=== PATIENT | male | born 1945 | race African-American/Black ===

== ENCOUNTER 2017-03-01 20:00 | Inpatient (IN) | payer MEDICARE, OTHER ==
[~2017-03-01] VITALS: Ht 182.9 cm; Wt 83.5 kg
[2017-03-01 20:10] VITALS: BP 110/82
--- NOTE | 2017-03-01 20:14 | Emergency Room Report ---
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 has followup upcoming for RT vs surgery for encroaching mass. Had trach placed ?2 weeks ago per EMS, relayed by SNF, but its not obvious from paperwork when trach was placed Per review of paperwork, was seen by specialist who noted bleeding into the trach but NOT around/outside of trach - no additional intervention undertaken by that specialist. Also was on blood thinners for DVT/PE but per EMS STOPPED recently History of NSTEMI as well. Had ECHO recently with EG 70%, Allergies: Coded Allergies: No Known Allergies (Unverified , 03/01/17) Patient History Past Medical History: other - See HPI Past Surgical History: other - trach Pertinent Family History: unable to obtain Social History: Denies: smoking, alcohol use, drug use Immunizations: UTD Reviewed Nursing Documentation: PMH: Agreed, PSxH: Agreed Review of Systems All Other Systems: negative except mentioned in HPI Physical Exam Vital Signs Date Time Temp Pulse Resp B/P (MAP) Pulse Ox O2 Delivery O2 Flow Rate FiO2 03/01/17 19:53 98.8 115 16 110/82 98 Room Air Sp02 EP Interpretation: reviewed, normal General Appearance: normal inspection, well appearing, no apparent distress, alert, GCS 15, non-toxic, other - Blood in oropharyx, within trach tubing Head: normocephalic, atraumatic Eyes: bilateral eye PERRL, bilateral eye EOMI ENT: normal ENT inspection, hearing grossly normal, normal voice Neck: normal inspection, full range of motion, supple, no bony tend, other - Trach in place, blood in tubing. No blood seen around trach., tracheotomy Respiratory: normal inspection, lungs clear, normal breath sounds, no respiratory distress, no retraction, no accessory muscle use, no wheezing Cardiovascular #1: normal peripheral pulses, regular rate, rhythm, no edema Gastrointestinal: normal inspection, normal bowel sounds, non tender, soft, no guarding, no hernia Genitourinary: no CVA tenderness Musculoskeletal: normal inspection, back normal, normal range of motion, Rosangela' s Sign negative Neurologic: normal inspection, alert, oriented x3, responsive, junk removal specialist III-XII nml as tested, motor strength/tone normal, speech normal Psychiatric: normal inspection, judgement/insight normal, mood/affect normal Skin: normal inspection, normal color, no rash Medical Decision Making Diagnostic Impression: Primary Impression: Hemoptysis Additional Impressions: Tracheostomy complication Qualified Codes: J95.00 - Unspecified tracheostomy complication Tracheostomy dependence Sepsis Qualified Codes: A41.9 - Sepsis, unspecified organism ER Course VS improved with Abx, supportive care Trach was suctioned by RT - noted aggravation of bleed with deep suction. NO bleeding noted around trach. Unlikely stoma bleed. Also had similar episode at outside hospital. Elevated leuks: No obvious PNA on CXR. UA: negative Given initial tachycardia and leuks 17k, concern for sepsis Blood Cx pending Empiric Abx given 1L NS given H&H stable. INR normal. No additional hemoptysis episodes here. - likely source is the laryngeal mass itself. [facility] Preferred hospitalist per insurance Dr Rust. Dr Rust was called, said Dr Carrera covering his admissions. I endorsed to Dr Carrera, he confirmed he is covering Dr Rust. Tele admit at 929pm EKG Diagnostic Results Rate: tachycardiac, other - 1st degree AV block Rhythm: NSR, other - RBBB ST Segments: no acute changes ASA given to the pt in ED: No Rhythm Strip Diag. Results EP Interpretation: yes Rate: 105 Rhythm: NSR, no PVC's, no ectopy Last Vital Signs Date Time Temp Pulse Resp B/P (MAP) Pulse Ox O2 Delivery O2 Flow Rate FiO2 03/01/17 19:53 98.8 115 16 110/82 98 Room Air Status: improved Disposition: ADMITTED INPATIENT Condition: Critical TIFFANY MERCEDES M.D. Mar 01, 2017 20:14
[2017-03-01 20:27] LABS: BASOPHILS % (AUTO) 0.7 % (0.0-2.0); EOSINOPHILS % (AUTO) 0.5 % (0.0-3.0); MEAN CORPUSCULAR HEMOGLOBIN 28.9 PG (27.0-31.0); MEAN CORPUSCULAR VOLUME 96 FL (80-99); MEAN PLATELET VOLUME 6.7 FL (6.5-10.1); MONOCYTES % (AUTO) 7.7 % (1.0-10.0); NEUTROPHILS % (AUTO) 81.1 % (45.0-75.0); PLATELET COUNT 180 K/UL (150-450); RED BLOOD COUNT 3.76 M/UL (4.70-6.10); RED CELL DISTRIBUTION WIDTH 13.5 % (11.6-14.8); WHITE BLOOD COUNT 17.7 K/UL (4.8-10.8)
[2017-03-01] MEDS ORDERED: TAMSULOSIN HCL0.4 MG ORAL (20:31)
[2017-03-01] MEDS ORDERED: LEVAQUIN500 MG ORAL (20:31)
[2017-03-01] MEDS ORDERED: COLACE100 MG ORAL (20:31)
[2017-03-01] MEDS ORDERED: PEPCID20 MG ORAL (20:31)
[2017-03-01] MEDS ORDERED: LISINOPRIL5 MG ORAL (20:31)
[2017-03-01] MEDS ORDERED: ASPIRIN81 MG ORAL (20:31)
[2017-03-01] MEDS ORDERED: NEURONTIN100 MG ORAL (20:31)
[2017-03-01] MEDS ORDERED: DETROL2 MG ORAL (20:31)
[2017-03-01] MEDS ORDERED: FLONASE ALLERG9.9 ML NS (20:31)
[2017-03-01] MEDS ORDERED: CARDIZEM CD120 MG ORAL (20:31)
[2017-03-01] MEDS ORDERED: ACETAMINOPHEN-1 EAC1 ORAL (20:34)
[2017-03-01] MEDS ORDERED: COLACE100 MG GT (20:34)
[2017-03-01] MEDS ORDERED: NEXIUM20 MG ORAL (20:34)
[2017-03-01] MEDS ORDERED: ZESTRIL2.5 MG ORAL (20:34)
[2017-03-01 20:38] LABS: INR 1.1 (0.9-1.1); PROTHROMBIN TIME 11.4 SEC (9.30-11.50)
[2017-03-01 20:46] LABS: ALANINE AMINOTRANSFERASE 45 U/L (12-78); ALBUMIN/GLOBULIN RATIO 0.5 (1.0-2.7); ANION GAP 8 mmol/L (5-15); ASPARTATE AMINO TRANSFERASE 31 U/L (15-37); CALCIUM 8.8 MG/DL (8.5-10.1); CARBON DIOXIDE 30 MMOL/L (21-32); CHLORIDE 101 MMOL/L (98-107); CREATININE 0.8 MG/DL (0.55-1.30); LIPASE 159 U/L (73-393); POTASSIUM 3.8 MMOL/L (3.5-5.1); SODIUM 139 MMOL/L (136-145); TOTAL PROTEIN 7.1 G/DL (6.4-8.2)
[2017-03-01] MEDS ORDERED: Cefepime HCl 2 GM in D5W 110 ML IVPB ONE (21:00)
[2017-03-01] MEDS ORDERED: Cefepime 2gm ONE (21:09)
[2017-03-01 21:15] LABS: APPEARANCE,URINE CLEAR; KETONES,URINE NEGATIVE (NEGATIVE); LEUKOCYTE ESTERASE ,URINE NEGATIVE (NEGATIVE); NITRITE,URINE NEGATIVE (NEGATIVE); PH,URINE 7 (4.5-8.0); PROTEIN,URINE NEGATIVE (NEGATIVE); UROBILINOGEN,URINE NORMAL MG/DL (0.0-1.0)
[2017-03-01] MEDS ORDERED: SENNA8.6 M2 GT (21:23)
[2017-03-01] MEDS ORDERED: BISACODYL5 MG RECTAL (21:23)
[2017-03-01] MEDS ORDERED: FLEET ENEMA133 ML RECTAL (21:23)
[2017-03-01] MEDS ORDERED: MILK OF MA400 MG/51 GT (21:23)
[2017-03-01 21:26] LABS: WBC,URINE 0-2 /HPF (0 - 0)
[2017-03-01 21:59] VITALS: BP 112/83
[2017-03-01] MEDS ORDERED: Zosyn 3.375gm/50ml Premix 50 ML IVPB SCH (22:00)
[2017-03-01] MEDS: Vancomycin 1.5 GM/D5W 250ML IVPB SCH (23:00)
[2017-03-01] MEDS: Albuterol/Ipratropium 3ml neb HHN SCH (23:00)
[2017-03-01] MEDS ORDERED: Zosyn 3.375gm inj ONE (23:23)
[2017-03-02] VITALS: BP 114/70
[2017-03-02] MEDS: Piperacillin/Tazobactam 3.375 GM in D5W 110 ML IVPB SCH ×2 (01:30→05:24)
[2017-03-02] MEDS: Albuterol/Ipratropium 3ml neb HHN SCH ×6 (02:53→23:13)
[2017-03-02] MEDS: Tylenol #3 tab (300mg/30mg) ORAL PRN ×3 (02:58→20:25)
[2017-03-02 04:00] VITALS: BP 110/67
[2017-03-02] MEDS ORDERED: Zosyn 3.375gm inj ONE (04:58)
[2017-03-02 08:00] VITALS: BP 105/63
[2017-03-02] MEDS ORDERED: dilTIAZem HCl CD 120mg cap ORAL SCH (09:00)
[2017-03-02] MEDS ORDERED: Bisacodyl EC 5mg tab ORAL SCH (09:00)
[2017-03-02 09:06] LABS: BASOPHILS % (AUTO) 0.6 % (0.0-2.0); EOSINOPHILS % (AUTO) 0.9 % (0.0-3.0); LYMPHOCYTES % (AUTO) 10.1 % (20.0-45.0); MEAN CORPUSCULAR HEMOGLOBIN 31.2 PG (27.0-31.0); MEAN CORPUSCULAR HGB CONC 32.9 G/DL (32.0-36.0); MEAN CORPUSCULAR VOLUME 95 FL (80-99); MEAN PLATELET VOLUME 7.9 FL (6.5-10.1); MONOCYTES % (AUTO) 8.3 % (1.0-10.0); NEUTROPHILS % (AUTO) 80.1 % (45.0-75.0); PLATELET COUNT 184 K/UL (150-450); RED CELL DISTRIBUTION WIDTH 13.4 % (11.6-14.8); WHITE BLOOD COUNT 16.5 K/UL (4.8-10.8)
[2017-03-02 09:35] LABS: ALANINE AMINOTRANSFERASE 36 U/L (12-78); ALBUMIN/GLOBULIN RATIO 0.6 (1.0-2.7); ANION GAP 9 mmol/L (5-15); ASPARTATE AMINO TRANSFERASE 29 U/L (15-37); CALCIUM 8.4 MG/DL (8.5-10.1); CARBON DIOXIDE 27 MMOL/L (21-32); CHLORIDE 103 MMOL/L (98-107); CREATININE 0.8 MG/DL (0.55-1.30); POTASSIUM 3.9 MMOL/L (3.5-5.1); SODIUM 139 MMOL/L (136-145); TOTAL PROTEIN 6.2 G/DL (6.4-8.2)
[2017-03-02] MEDS: Milk of Magnesia 30ml Ud GT SCH (10:03)
[2017-03-02] MEDS: Docusate 100mg cap ORAL SCH ×2 (10:04→17:50)
[2017-03-02] MEDS: Pantoprazole Inj IVP SCH (10:05)
--- NOTE | 2017-03-02 10:23 | Diagnostic Imaging Report ---
Indication: COUGH Technique: One view of the chest Comparison: none Findings: Lungs and pleural spaces are clear. Heart size is normal. Patient's chin obscures the upper mediastinum. There is a tracheostomy Impression: No acute process
[2017-03-02] MEDS: Tolterodine 2mg tab ORAL SCH ×2 (10:38→17:50)
[2017-03-02 12:00] VITALS: BP 110/60
[2017-03-02] MEDS: Vancomycin 1.5 GM/D5W 250ML IVPB SCH ×2 (13:17)
[2017-03-02] MEDS: Zosyn 3.375gm/50ml Premix 50 ML IVPB SCH ×2 (15:26→22:00)
[2017-03-02 16:00] VITALS: BP 115/69
[2017-03-02] MEDS ORDERED: NS 275ml ONE (16:30)
[2017-03-02] MEDS ORDERED: Tubing IV Secondary IV ONE (16:30)
--- NOTE | 2017-03-02 18:30 | History and Physical Report ---
DATE OF ADMISSION: 03/01/2017 CHIEF COMPLAINT: Hemoptysis. HISTORY OF PRESENT ILLNESS: The patient is a 71-year-old male. He has a history of recent trach placement in January for a mass in the neck. According to the patient, he was well until January. He apparently saw the ENT at that time, was diagnosed with some type of a mass in the airway or the oropharynx. It was recommended at that time he have a trach placement. He underwent trach placement in January, had been doing well. He recently developed hemoptysis 2 weeks ago, was at an outside hospital, had extensive workup there, was unremarkable. His course there was complicated by tachycardia. He was also diagnosed with blood clots in the lung. According to the family members, he is briefly on anticoagulation and subcutaneous heparin, but this has apparently been discontinued. He was discharged to a [facility] facility and developed worsening hemoptysis there and was transferred here to the emergency room. He is now admitted for further evaluation and care. According to the patient, suction has been fairly aggressive at the fdc facility. He is on aspirin. He is otherwise without complaints. In the ER, he was noted to have a high white count. There was a concern about possible underlying infection. He is therefore admitted. PAST MEDICAL HISTORY: As above. PAST SURGICAL HISTORY: As above. CURRENT MEDICATIONS: Reconciled and reviewed. ALLERGIES: None. FAMILY HISTORY: None. SOCIAL HISTORY: The patient is a prior smoker. No alcohol. No drugs. REVIEW OF SYSTEMS: Negative except for hemoptysis. PHYSICAL EXAMINATION: VITAL SIGNS: Temperature 97.5, pulse 95, respirations 18, and blood pressure 110/67. GENERAL: The patient is a well-developed male, in no apparent distress. He is awake, alert, and oriented. HEENT: His pupils are equal, round, and reactive to light. Sclerae anicteric. Oropharynx is clear. NECK: Supple. Trachea is midline. There is no discharge. HEART: Regular rate and rhythm. LUNGS: Clear. ABDOMEN: Soft, nontender, and nondistended. EXTREMITIES: Without clubbing, cyanosis, or edema. LABORATORY AND DIAGNOSTIC DATA: Labs, coags are normal. White count 17,000, hemoglobin 11, hematocrit 36, and platelets of 180. Sodium is 139, potassium 3.8, and glucose 140. Troponin is 0.025. UA was negative. 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 PLAN: Humidified air, gentle suctioning. Continue outpatient medication regimen. We will discontinue the patient's aspirin for the time being. We will check a venous duplex of the legs. The patient will receive empiric antibiotics until infection is ruled out. Miah Carrera M.D. DR: DUNIA JOB#: [id number] CC:
[2017-03-02 20:00] VITALS: BP 110/84
[2017-03-02] MEDS: Tamsulosin 0.4mg cap ORAL SCH (20:25)
[2017-03-02] MEDS ORDERED: Lactulose 20gm/30ml UDC ORAL PRN (21:15)
[2017-03-02] MEDS ORDERED: Fleet's Enema 133ml RECTAL ONE (21:30)
[2017-03-02] MEDS ORDERED: Fleet's Enema 133ml RECTAL PRN (21:45)
[2017-03-03] VITALS: BP 142/87
[2017-03-03] MEDS: Albuterol/Ipratropium 3ml neb HHN SCH ×6 (03:12→23:53)
[2017-03-03 04:00] VITALS: BP 107/70
[2017-03-03] MEDS: Zosyn 3.375gm/50ml Premix 50 ML IVPB SCH ×3 (05:57→21:17)
[2017-03-03 08:00] VITALS: BP 95/69
[2017-03-03] MEDS ORDERED: Docusate 250mg cap ORAL SCH (09:00)
--- NOTE | 2017-03-03 09:16 | General Progress Note ---
Assessment/Plan Problem List: (1) Hemoptysis ICD Codes: R04.2 - Hemoptysis SNOMED: 96051499 (2) Sepsis ICD Codes: A41.9 - Sepsis, unspecified organism SNOMED: 46517688 Qualifiers: Qualified Codes: A41.9 - Sepsis, unspecified organism (3) Tracheostomy complication ICD Codes: J95.00 - Unspecified tracheostomy complication SNOMED: 72958023 Qualifiers: Qualified Codes: J95.00 - Unspecified tracheostomy complication Status: stable, progressing Assessment/Plan gentle trach care off aspirin due to hemoptysis check duplex- recent hx of pe/dvt. not on anticoag. ?filter check sputum cs bowel regime Subjective ROS Limited/Unobtainable: No Constitutional: Reports: malaise, weakness HEENT: Reports: no symptoms Cardiovascular: Reports: no symptoms Respiratory: Reports: cough Gastrointestinal/Abdominal: Reports: no symptoms Genitourinary: Reports: no symptoms Neurologic/Psychiatric: Reports: no symptoms Endocrine: Reports: no symptoms Hematologic/Lymphatic: Reports: anemia Allergies: Coded Allergies: No Known Allergies (Unverified , 03/01/17) All Systems: reviewed and negative except above Subjective decreased hemoptysis. constipation better. wants to ivy. on iv abx. cultures reviewed Objective Last 24 Hour Vital Signs Date Time Temp Pulse Resp B/P (MAP) Pulse Ox O2 Delivery O2 Flow Rate FiO2 03/03/17 08:00 97.9 95 20 95/69 98 Mechanical Ventilator 03/03/17 07:02 81 18 98 T-piece 10.0 35 03/03/17 06:53 35 03/03/17 06:53 T-piece 10.0 35 03/03/17 06:53 82 18 97 T-piece 10.0 35 03/03/17 06:52 97 T-piece 10.0 35 03/03/17 04:00 98.2 86 20 107/70 99 T-piece 4.0 35 03/03/17 04:00 4.0 35 03/03/17 04:00 84 03/03/17 03:21 86 18 99 T-piece 10.0 35 03/03/17 03:12 84 18 98 T-piece 10.0 35 03/03/17 03:12 35 03/03/17 01:35 T-piece 10.0 35 03/03/17 01:35 98 T-piece 10.0 35 03/03/17 00:00 4.0 35 03/03/17 00:00 88 03/03/17 00:00 97.0 116 20 142/87 100 Room Air 10.0 35 03/02/17 23:26 92 20 100 T-piece 10.0 35 03/02/17 23:13 35 03/02/17 23:13 92 18 98 T-piece 10.0 35 03/02/17 21:24 97.5 03/02/17 20:00 97.5 86 18 110/84 99 T-piece 10.0 35 03/02/17 20:00 4.0 35 03/02/17 19:44 85 18 99 T-piece 10.0 35 03/02/17 19:35 86 03/02/17 19:34 83 18 96 T-piece 10.0 35 03/02/17 19:34 35 03/02/17 19:34 83 18 T-piece 10.0 35 03/02/17 19:33 96 T-piece 10.0 35 03/02/17 19:33 T-piece 10.0 35 03/02/17 16:10 81 20 99 T-piece 10.0 35 03/02/17 16:10 86 18 100 T-piece 10.0 35 03/02/17 16:00 83 03/02/17 16:00 4.0 35 03/02/17 16:00 97.5 83 21 115/69 99 Mechanical Ventilator 03/02/17 15:54 82 18 99 T-piece 10.0 35 03/02/17 15:54 35 03/02/17 13:20 T-piece 10.0 35 03/02/17 13:20 100 T-piece 10.0 35 03/02/17 12:00 84 03/02/17 12:00 4.0 35 03/02/17 12:00 98.0 85 20 110/60 98 Mechanical Ventilator 03/02/17 11:12 85 18 100 T-piece 10.0 35 03/02/17 11:01 91 18 100 T-piece 10.0 35 03/02/17 11:01 35 03/02/17 10:05 86 105/63 Height (Feet): 6 Height (Inches): 1.00 Weight (Pounds): 184 General Appearance: WD/WN, alert Neck: supple Cardiovascular: regular rhythm Respiratory/Chest: chest wall non-tender, lungs clear, normal breath sounds, no respiratory distress Abdomen: normal bowel sounds, non tender, soft, no organomegaly Edema: trace edema Neurologic: airport operations coordinator II-XII grossly normal Lymphatic: normal anterior cervical (L), normal anterior cervical (R), normal posterior cervical (L), normal posterior cervical (R), normal submandibular (L) , normal submandibular (R), normal supraclavicular (L), normal supraclavicular ( R), normal axillary (L), normal axillary (R), normal inguinal (L), normal inguinal (R), normal other LUCIA ROBLES Mar 03, 2017 09:16
[2017-03-03] MEDS: dilTIAZem HCl 30mg tab ORAL SCH ×3 (09:30→21:55)
[2017-03-03] MEDS: Docusate 100mg/10ml Liq GT SCH ×2 (10:13→17:21)
[2017-03-03] MEDS: Tolterodine 2mg tab ORAL SCH ×2 (10:14→17:24)
[2017-03-03] MEDS: Milk of Magnesia 30ml Ud GT SCH (10:14)
[2017-03-03] MEDS: Pantoprazole Inj IVP SCH (10:16)
[2017-03-03] MEDS: Vancomycin 1.5 GM/D5W 250ML IVPB SCH (10:17)
[2017-03-03 12:00] VITALS: BP 117/71
[2017-03-03] MEDS: Gabapentin 300 MG/6 ML Soln GT SCH (12:18)
[2017-03-03] MEDS: Vancomycin 1250mg/D5W 250ml IVPB SCH ×2 (12:19→23:36)
[2017-03-03] MEDS: Acetaminophen 650mg/20.3ml GT PRN ×2 (12:25→17:23)
[2017-03-03] MEDS ORDERED: Sterile Water Irrig 1000ml IRRIG ONE (15:35)
[2017-03-03 16:00] VITALS: BP 118/73
[2017-03-03 20:00] VITALS: BP 90/59
[2017-03-03] MEDS: Tamsulosin 0.4mg cap ORAL SCH (21:15)
[2017-03-04] VITALS: BP 102/69
[2017-03-04 04:00] VITALS: BP 117/63
[2017-03-04] MEDS: Albuterol/Ipratropium 3ml neb HHN SCH ×5 (04:19→21:32)
[2017-03-04] MEDS: Zosyn 3.375gm/50ml Premix 50 ML IVPB SCH ×3 (05:31→21:24)
[2017-03-04] MEDS: dilTIAZem HCl 30mg tab ORAL SCH ×4 (05:32→21:29)
[2017-03-04] MEDS: Acetaminophen 650mg/20.3ml GT PRN (05:49)
[2017-03-04 08:00] VITALS: BP 106/67
[2017-03-04] MEDS: Milk of Magnesia 30ml Ud GT SCH (08:58)
[2017-03-04] MEDS: Tolterodine 2mg tab ORAL SCH ×2 (08:58→17:26)
[2017-03-04] MEDS: Docusate 100mg/10ml Liq GT SCH ×2 (08:59→17:54)
[2017-03-04] MEDS: Gabapentin 300 MG/6 ML Soln GT SCH (08:59)
[2017-03-04] MEDS: Pantoprazole Inj IVP SCH (09:00)
--- NOTE | 2017-03-04 11:20 | Diagnostic Imaging Report ---
APPROVED REPORT CPT Code: 36879 Present Symptoms Lower Extremity Pain: Bilateral BILATERAL: Imaging reveals a patent deep venous system bilaterally. There is no evidence of thrombus within the femoral, popliteal or tibial segments. The greater saphenous veins are also within normal limits. Doppler indicates normal spontaneous flow within these segments.
[2017-03-04 12:00] VITALS: BP 104/62
[2017-03-04] MEDS: Vancomycin 1250mg/D5W 250ml IVPB SCH ×2 (12:25→23:48)
[2017-03-04] MEDS ORDERED: NS 275ml ONE (15:55)
[2017-03-04 16:00] VITALS: BP 104/67
[2017-03-04 20:00] VITALS: BP 125/78
[2017-03-04] MEDS: Tamsulosin 0.4mg cap ORAL SCH (21:18)
--- NOTE | 2017-03-04 23:45 | Consultation ---
DATE OF CONSULTATION: 03/04/2017 PULMONARY CONSULTATION/HISTORY AND PHYSICAL CONSULTING PHYSICIAN: Emanuel Rust M.D. HISTORY OF PRESENT ILLNESS: This is a 71-year-old male with a history of chronic tracheostomy, which was placed approximately a month and a half ago after he had been diagnosed to have head and neck carcinoma. He developed hemoptysis several weeks ago and was seen at an outside hospital, where he had an extensive workup that was reportedly negative. He again had hemoptysis yesterday at the facility and was transferred to this hospital for subsequent management and care. The patient states that he has been getting aggressive suctioning at the nursing facility. Apparently, he has been on aspirin and previously was on subcutaneous heparin as well. In the emergency room, in addition to having hemoptysis, he was also noted to have a white count of 17,000. Today's white count is 16.5, hemoglobin dropped from 10.9 to 10.0. Coags are negative. X-ray of the chest is negative. PAST MEDICAL HISTORY: Notable for head and neck cancer only. PAST SURGICAL HISTORY: Tracheostomy. MEDICATIONS: At this time include Neurontin, Cardizem, Colace, and Flomax. He is also on empiric antibiotics. ALLERGIES: None. REVIEW OF SYSTEMS: Denies any headaches, hematemesis, melena, or hematochezia. PHYSICAL EXAMINATION: GENERAL: A 71-year-old male. HEENT: Unremarkable. Tracheostomy is noted. CHEST: Clear breath sounds. ABDOMEN: Soft. EXTREMITIES: There is no edema. LABORATORY DATA: Labs as discussed above. IMPRESSION: 1. Hemoptysis. 2. Head and neck carcinoma. DISCUSSION: Agree with empiric antibiotics. We will consider imaging studies. Discontinue aspirin. Suction gently with humidification. We will follow. Emanuel Rust M.D. DR: JOSE A/marilyn JOB#: [id number] CC:
[2017-03-04] MEDS: Tylenol #3 tab (300mg/30mg) ORAL PRN (23:46)
[2017-03-05] VITALS: BP 111/64
[2017-03-05] MEDS: Albuterol/Ipratropium 3ml neb HHN SCH ×6 (00:14→19:09)
[2017-03-05 04:00] VITALS: BP 117/68
[2017-03-05] MEDS: Zosyn 3.375gm/50ml Premix 50 ML IVPB SCH ×2 (05:37→15:05)
[2017-03-05] MEDS: dilTIAZem HCl 30mg tab ORAL SCH ×2 (05:38→15:04)
[2017-03-05] MEDS: Acetaminophen 650mg/20.3ml GT PRN (06:00)
[2017-03-05 06:41] LABS: BASOPHILS % (AUTO) 0.9 % (0.0-2.0); EOSINOPHILS % (AUTO) 1.4 % (0.0-3.0); MEAN CORPUSCULAR HEMOGLOBIN 29.8 PG (27.0-31.0); MEAN CORPUSCULAR HGB CONC 31.6 G/DL (32.0-36.0); MEAN CORPUSCULAR VOLUME 94 FL (80-99); MEAN PLATELET VOLUME 7.4 FL (6.5-10.1); MONOCYTES % (AUTO) 10.5 % (1.0-10.0); NEUTROPHILS % (AUTO) 72.2 % (45.0-75.0); PLATELET COUNT 181 K/UL (150-450); RED BLOOD COUNT 3.08 M/UL (4.70-6.10); RED CELL DISTRIBUTION WIDTH 13.8 % (11.6-14.8); WHITE BLOOD COUNT 11.5 K/UL (4.8-10.8)
[2017-03-05 07:10] LABS: ANION GAP 6 mmol/L (5-15); CALCIUM 8.2 MG/DL (8.5-10.1); CARBON DIOXIDE 28 MMOL/L (21-32); CHLORIDE 107 MMOL/L (98-107); CREATININE 0.8 MG/DL (0.55-1.30); POTASSIUM 3.8 MMOL/L (3.5-5.1); SODIUM 141 MMOL/L (136-145)
[2017-03-05 08:00] VITALS: BP 111/63
[2017-03-05] MEDS: Docusate 100mg/10ml Liq GT SCH ×2 (08:39→18:00)
[2017-03-05] MEDS: Milk of Magnesia 30ml Ud GT SCH (08:39)
[2017-03-05] MEDS: Tolterodine 2mg tab ORAL SCH ×2 (08:40→18:40)
[2017-03-05] MEDS: Pantoprazole Inj IVP SCH (08:40)
[2017-03-05] MEDS: Gabapentin 300 MG/6 ML Soln GT SCH (09:04)
--- NOTE | 2017-03-05 09:13 | Pulmonology Progress Note ---
Assessment/Plan Assessment/Plan IMPRESSION: 1. Hemoptysis. 2. Head and neck carcinoma. DISCUSSION: Records from [facility] reviewed Minimal bleeding last 24 hours from trach Will dc back to SNF Discussed with family Patient is scheduled for followup with surgeon; likely ENT Will leave delaney in Subjective Interval Events: No further hemoptysis Constitutional: Reports: no symptoms HEENT: Repors: no symptoms Respiratory: Reports: no symptoms Cardiovascular: Reports: no symptoms Gastrointestinal/Abdominal: Reports: no symptoms Genitourinary: Reports: no symptoms Neurologic: Reports: no symptoms Allergies: Coded Allergies: No Known Allergies (Unverified , 03/01/17) Objective Last 24 Hour Vital Signs Date Time Temp Pulse Resp B/P (MAP) Pulse Ox O2 Delivery O2 Flow Rate FiO2 03/05/17 08:00 97.9 79 19 111/63 99 T-piece 03/05/17 08:00 79 03/05/17 08:00 8.0 35 03/05/17 07:30 T-piece 6.0 28 03/05/17 07:30 100 T-piece 6.0 28 03/05/17 07:30 T-piece 6.0 28 03/05/17 07:30 84 16 100 T-piece 6.0 28 03/05/17 07:03 98.8 03/05/17 05:38 82 117/68 03/05/17 04:00 98.8 82 20 117/68 97 T-piece 03/05/17 04:00 82 03/05/17 04:00 6.0 28 03/05/17 03:45 82 20 98 T-piece 6.0 28 03/05/17 03:45 28 03/05/17 03:30 81 20 97 T-piece 6.0 28 03/05/17 01:11 T-piece 6.0 28 03/05/17 01:11 98 T-piece 6.0 28 03/05/17 00:00 84 03/05/17 00:00 6.0 28 03/05/17 00:00 98.4 83 20 111/64 96 Room Air 03/04/17 23:45 84 20 100 T-piece 6.0 28 03/04/17 23:30 28 03/04/17 23:30 80 20 98 T-piece 6.0 28 03/04/17 21:29 81 125/78 03/04/17 20:00 81 03/04/17 20:00 8.0 35 03/04/17 20:00 98.4 81 20 125/78 100 T-piece 03/04/17 19:45 86 20 100 T-piece 6.0 28 03/04/17 19:30 82 20 98 T-piece 6.0 28 03/04/17 19:30 28 03/04/17 19:30 98 T-piece 6.0 28 03/04/17 19:30 T-piece 6.0 28 03/04/17 16:00 81 03/04/17 16:00 8.0 35 03/04/17 16:00 97.0 81 16 104/67 100 Trach Collar 35 03/04/17 15:37 85 16 100 T-piece 8.0 35 03/04/17 15:25 35 03/04/17 15:25 86 18 98 T-piece 8.0 35 03/04/17 13:05 98 T-piece 8.0 35 03/04/17 13:05 T-piece 8.0 35 03/04/17 12:00 97.5 86 16 104/62 100 Trach Collar 35 03/04/17 12:00 8.0 35 03/04/17 12:00 81 03/04/17 11:32 83 18 100 T-piece 8.0 35 03/04/17 11:20 82 18 98 T-piece 8.0 35 03/04/17 11:20 35 General Appearance: no acute distress HEENT: normocephalic, status post trach Respiratory/Chest: chest wall non-tender, lungs clear Cardiovascular: normal peripheral pulses, normal rate Abdomen: normal bowel sounds, soft, non tender Microbiology Date/Time Source Procedure Growth Status 03/03/17 11:00 Sputum Expectorated Gram Stain - Final Complete 03/03/17 11:00 Sputum Expectorated Sputum Culture - Final NORMAL UPPER RESPIRATORY TIFF PRESENT Complete Laboratory Tests 03/05/17 06:00: White Blood Count 11.5H, Red Blood Count 3.08L, Hemoglobin 9.2L, Hematocrit 29.0L, Mean Corpuscular Volume 94, Mean Corpuscular Hemoglobin 29.8, Mean Corpuscular Hemoglobin Concent 31.6L, Red Cell Distribution Width 13.8, Platelet Count 181, Mean Platelet Volume 7.4, Neutrophils (%) (Auto) 72.2, Lymphocytes (%) (Auto) 15.0L, Monocytes (%) (Auto) 10.5H, Eosinophils (%) (Auto ) 1.4, Basophils (%) (Auto) 0.9, Sodium Level 141, Potassium Level 3.8, Chloride Level 107, Carbon Dioxide Level 28, Anion Gap 6, Blood Urea Nitrogen 7 , Creatinine 0.8, Estimat Glomerular Filtration Rate , Glucose Level 126H, Calcium Level 8.2L Current Medications Medications (Trade) Dose Ordered Sig/Nima Route PRN Reason Start Time Stop Time Status Last Admin Dose Admin Acetaminophen (Tylenol) 650 mg Q4H PRN GT Mild Pain/Temp > 100.5 03/01/17 21:45 03/31/17 21:44 03/05/17 06:00 Acetaminophen/ Codeine Phosphate (Tylenol #3) 1 tab Q4H PRN ORAL For Pain 03/01/17 21:45 03/08/17 21:44 03/04/17 23:46 Albuterol/ Ipratropium (Albuterol/ Ipratropium) 3 ml Q4HRT HHN 03/01/17 23:00 03/06/17 22:59 03/05/17 04:37 Bisacodyl (Dulcolax) 10 mg DAILYPRN PRN RECTAL Constipation 03/02/17 21:15 04/01/17 21:14 03/02/17 21:48 Diltiazem HCl (Cardizem) 30 mg EVERY 8 HOURS ORAL 03/03/17 09:30 04/02/17 09:29 03/05/17 05:38 Docusate Sodium (Colace) 250 mg TWICE A DAY GT 03/03/17 09:00 04/02/17 08:59 03/04/17 08:59 Gabapentin (Neurontin) 300 mg DAILY GT 03/03/17 10:30 04/02/17 10:29 03/05/17 09:04 Lactulose (Cephulac) 30 gm TIDPRN PRN ORAL Constipation 03/02/17 21:15 04/01/17 21:14 Magnesium Hydroxide (Mom) 30 ml DAILY GT 03/02/17 09:00 04/01/17 08:59 03/04/17 08:58 Ondansetron HCl (Zofran) 4 mg Q6H PRN IVP Nausea & Vomiting 03/01/17 21:45 03/31/17 21:44 Pantoprazole (Protonix) 40 mg DAILY IVP 03/02/17 09:00 04/01/17 08:59 03/05/17 08:40 Piperacillin/ Tazobactam/ Dextrose 50 ml @ 12.5 mls/hr Q8HR IVPB 03/02/17 14:00 03/09/17 13:59 03/05/17 05:37 Sodium Chloride 1,000 ml @ 75 mls/hr [id number] IV 03/01/17 21:45 03/31/17 21:44 03/05/17 02:57 Sodium Phosphate (Fleet's Sodium Phosl Enema) 133 ml DAILYPRN PRN RECTAL Constipation 03/02/17 21:45 04/01/17 21:44 Tamsulosin HCl (Flomax) 0.4 mg BEDTIME ORAL 03/02/17 21:00 04/01/17 20:59 03/04/17 21:18 Temazepam (Restoril) 15 mg HSPRN PRN GT Insomnia 03/01/17 21:45 03/08/17 21:44 Tolterodine Tartrate (Detrol) 2 mg TWICE A DAY ORAL 03/02/17 09:00 04/01/17 08:59 03/05/17 08:40 Vancomycin HCl (Vanco rx to dose) 1 ea DAILY PRN MISC Per rx protocol 03/01/17 21:45 03/31/17 21:44 Vancomycin HCl/ Dextrose 250 ml @ 166.667 mls/hr Q12HR@0000,1200 IVPB 03/03/17 12:00 03/08/17 11:59 03/04/17 23:48 Emanuel Rust MD Mar 05, 2017 09:13
[2017-03-05 12:00] VITALS: BP 102/66
[2017-03-05] MEDS: Vancomycin 1250mg/D5W 250ml IVPB SCH (12:20)
[2017-03-05] MEDS ORDERED: Nitroglycerin Subl 0.4mg tab SL ONE (13:44)
[2017-03-05] MEDS ORDERED: Morphine Sulfate 4mg/ml Inj IVP PRN (14:45)
[2017-03-05] MEDS ORDERED: Morphine Sulfate 4mg/ml Inj IVP ONE (15:00)
[2017-03-05 16:00] VITALS: BP 102/70
[2017-03-05] MEDS ORDERED: Sterile Water Irrig 1000ml IRRIG ONE (16:32)
[2017-03-05] MEDS ORDERED: NS 275ml ONE (16:32)
[2017-03-05] MEDS: Tylenol #3 tab (300mg/30mg) ORAL PRN (22:22)
[2017-03-05] MEDS: Tamsulosin 0.4mg cap ORAL SCH (22:22)
--- NOTE | 2017-03-06 15:16 | Cardiology Report ---
APPROVED REPORT EKG Measurement Heart [id number] CO P-82 [id number] Atrial flutter Right bundle branch block Abnormal ECG
--- NOTE | 2017-03-07 11:33 | Discharge Summary ---
Discharge Summary Hospital Course Date of Admission Mar 01, 2017 at 21:15 Date of Discharge Mar 05, 2017 at 22:15 Admitting Diagnosis hemoptysis from [facility] VERA Price is a 71 year old male who was admitted on Mar 01, 2017 at 21:15 for Hemoptysis From [facility] Hospital Course [id number] Discharge Discharge Disposition Patient was discharged to SNF/Subacute Facility(03) Discharge Diagnoses: Vijaya Ortiz NP Mar 07, 2017 11:33
--- NOTE | 2017-03-07 22:15 | Discharge Summary 2 SIG ---
DATE OF ADMISSION: 03/01/2017 DATE OF DISCHARGE: 03/05/2017 BRIEF HOSPITAL COURSE: The patient is a 71-year-old male, who had history of trach placement in January, secondary to a mass in the neck/mass in the airway or oropharynx. He underwent trach placement in January 2017 and had been doing fairly well. He recently developed hemoptysis two weeks ago and was admitted to an outside hospital where he had extensive workup, which was unremarkable. He was diagnosed with blood clots in the lung and was briefly on anticoagulation and subcutaneous heparin; however, had been apparently discontinued. He was discharged to a [facility] facility where he developed worsening hemoptysis and was transferred here to [facility] for further care. On evaluation at ED, blood work showed leukocytosis. The trach was suctioned by RT and noted aggravation of bleeding with deep suction. There was no bleeding noted peripherally around the trach. Due to elevated leukocytosis, there was concern for sepsis. There was no obvious pneumonia on chest x-ray and urinalysis was fairly benign looking. He was started on empiric antibiotic and the patient was admitted to telemetry for further evaluation. He was taken off aspirin due to hemoptysis. Venous duplex of lower extremity revealed patent deep venous system bilaterally. There was no evidence of acute thrombosis within the femoral, popliteal, or tibial segments. There had been minimal bleeding coming out from the trach and the INR was 1.1. He was continued on IV antibiotics and was eventually discharged back to SNF. The patient for followup with ENT as outpatient. FINAL DIAGNOSES: 1. Hemoptysis. 2. Sepsis. 3. Tracheostomy complication. 4. Head and neck carcinoma. DISCHARGE DISPOSITION: The patient was discharged to [facility]. DISCHARGE MEDICATIONS: Refer to medication list. [facility]. FOLLOWUP: The patient to follow up with ENT as outpatient. Emanule Rust M.D. I have been assigned to dictate discharge summary on this account and I was not involved in the patient's management. Vijaya Ortiz N.P. DR: Johnny JOB#: [id number] CC: TATIANA
== END 2017-03-05 22:15 | DRG 872 ==
LOC: EDBD 20:00 → EMR 20:33 → EDBEDREQ 20:38 → 2E 21:15 → EDBEDREQ 21:39
DX: A41.9 Sepsis, unspecified organism (principal); J95.01 Hemorrhage from tracheostomy stoma; C76.0 Malignant neoplasm of head, face and neck; Z87.891 Personal history of nicotine dependence; I10 Essential (primary) hypertension; Z86.711 Personal history of pulmonary embolism; Y83.3 Surgical operation with formation of external stoma as the cause of abnormal reaction of the patient, or of later complication, without mention of misadventure at the time of the procedure
CPT/HCPCS: 36415; 71010; 80048; 80053; 80202; 81003; 82962; 83690; 84484; 85025; 85610; 85730; 86850; 86900; 86901; 87040; 87070; 87081; 87205; 93005; 93970; 94640; 94664; 94760; 99285; J7620

== ENCOUNTER 2017-03-24 10:52 | Inpatient (IN) | payer MEDICARE ==
[2017-03-24] VITALS (24 sets, daily range): BP systolic 93–157; BP diastolic 55–97
[~2017-03-24] VITALS: Ht 188 cm; Wt 85.3 kg
[~2017-03-24 10:52] MED LIST: ACETAMINOPHEN-1 EAC1 ORAL; ASPIRIN81 MG ORAL; BISACODYL5 MG RECTAL; CARDIZEM CD120 MG ORAL; COLACE100 MG GT; COLACE100 MG ORAL; DETROL2 MG ORAL; FLEET ENEMA133 ML RECTAL; FLONASE ALLERG9.9 ML NS; LEVAQUIN500 MG ORAL; LISINOPRIL5 MG ORAL; MILK OF MA400 MG/51 GT; NEURONTIN100 MG ORAL; NEXIUM20 MG ORAL; PEPCID20 MG ORAL; SENNA8.6 M2 GT; TAMSULOSIN HCL0.4 MG ORAL; ZESTRIL2.5 MG ORAL
[2017-03-24] MEDS ORDERED: ACETAMINOP160 MG/5 M GT ×3 (11:01→11:15)
[2017-03-24] MEDS ORDERED: Iron Sulfate GT (11:15)
[2017-03-24] MEDS ORDERED: MULTIVITAMINS1 EAC2 GT (11:15)
[2017-03-24] MEDS ORDERED: ZINC SULFATE220 M1 GT (11:15)
[2017-03-24] MEDS ORDERED: VITAMIN C500 M1 GT (11:15)
[2017-03-24 11:19] LABS: MEAN CORPUSCULAR HEMOGLOBIN 28.6 PG (27.0-31.0); MEAN CORPUSCULAR HGB CONC 31.7 G/DL (32.0-36.0); MEAN CORPUSCULAR VOLUME 90 FL (80-99); MEAN PLATELET VOLUME 6.5 FL (6.5-10.1); PLATELET COUNT 324 K/UL (150-450); RED CELL DISTRIBUTION WIDTH 14.5 % (11.6-14.8)
[2017-03-24 11:21] LABS: WHITE BLOOD COUNT 23.9 K/UL (4.8-10.8)
--- NOTE | 2017-03-24 11:22 | Emergency Room Report ---
History of Present Illness General Chief Complaint: General Complaint Source: Medical Record (Alda Richardson M.D.) Present Illness HPI 71-year-old male, history of malignant laryngeal cancer, with a tracheostomy, PEG tube, presenting with bleeding from mouth and nose. EMS states that that has happened in the past, the last notes from the shelter states that he is supposed to be following up with the ENT However no other history able to be obtained Patient currently unable to speak, however following commands, states that he is in pain (Alda Richardson M.D.) Allergies: Coded Allergies: No Known Allergies (Unverified , 03/01/17) Patient History Past Medical History: see triage record Past Surgical History: none Pertinent Family History: none Reviewed Nursing Documentation: PMH: Agreed, PSxH: Agreed (Alda Richardson M.D. ) Nursing Documentation-PMH Hx Hypertension: Yes - Glaucoma Hx Cancer: Yes - Larynx; Trache Hx Gastrointestinal Problems: Yes - G-tube; Reflux Hx Neurological Problems: No (Alda Richardsno M.D.) Review of Systems All Other Systems: limited - unable to speak (Alda Richardson M.D.) Physical Exam Vital Signs Date Time Temp Pulse Resp B/P (MAP) Pulse Ox O2 Delivery O2 Flow Rate FiO2 03/24/17 10:45 97.5 117 18 109/64 97 T-piece 4.0 Sp02 EP Interpretation: abnormal - 98 on 4L nc General Appearance: alert, mild distress, Chronically Ill Head: normocephalic, atraumatic Eyes: bilateral eye normal inspection, bilateral eye PERRL, bilateral eye EOMI ENT: other - blood noted in posterior pharynx active bleeding despite suctioning Neck: other - +tracheostomy in place Respiratory: other - +tracheostomy in place, R sided infiltrate/effusion, dec breath sounds R lung base Cardiovascular #1: tachycardia Cardiovascular #2: 2+ radial (R), 2+ radial (L) Gastrointestinal: other - peg tube in place, nontender abdomen Genitourinary: no CVA tenderness Musculoskeletal: normal inspection, back normal, normal range of motion, non- tender Neurologic: other - unable to speak but moves all ext spontaneously Psychiatric: normal inspection, judgement/insight normal, memory normal Skin: normal inspection, normal color, no rash, warm/dry, well hydrated, normal turgor (Alda Richardson M.D.) Procedures Critical Care Time Critical Care Time 40 minutes of CC time 71-year-old male, with bleeding from throat VS: Cardiac and hypotensive Sepsis criteria met PLAN: IV access, labs, lactate, Blood/Urine Cx, Abx, ENT consult Anticipate admission to. [facility] CC time also includes review of labs, review of EMR, discussion with family and paperwork from SNF, d/w hospitalist CC could include dosing of pressors, additional Abx CC time does not include procedures (Alda Richardson M.D.) Medical Decision Making Diagnostic Impression: Primary Impression: Laryngeal cancer Additional Impressions: Bleeding Severe sepsis ER Course 71-year-old male, presenting with bleeding from throat DDX: Bleeding is likely related to invasive throat cancer, he is not bleeding from the trach Rule out sepsis, aspiration pneumonia, anemia Plan: Obtain labs, ua, EKG, CXR Type and screen, blood transfusion ENT consult ER course: Patient is tachycardic and hypotensive upon arrival, will transfuse one unit, and also give fluids Leukocytosis noted, appears to be aspiration pneumonia on x-ray as right side is obliterated, prospect of antibiotics and fluids given to patient He is trached to oxygen, not on event, currently does not appear to be in respiratory distress He is awake and following commands ENT was consulted at 11:10 AM Multiple ENTs were contacted around the area, however no ENT service able to come to [place] at this time I contacted both [facility] and [facility], awaiting possible transfer for higher-level care d/w Dr Mandel from [facility] (ENT) who was made aware of patient Patient's trach tube is cuffed, inflated, sedation started, started on vent Vital signs improved Patient's daughter Jessica Price, power of collections attorney, now in ED. states he had CA 10 yrs ago, went away, now ~2 mos ago was told he has laryngeal CA but has to fu with oncology. he has not seen ENT yet. had trach placed 01/30. still pending xfer to [facility] Sepsis Re-examination Time: 1:30 PM VS: Temp 97.1 HR 100 and BP 160/70 RR 17 CVS: Tachycardic Respiratory: Decreased sounds in the right lung base Peripheral pulses: 2+ radial Capillary refill: <2 seconds Skin exam: warm, dry, no rash, not mottled Disposition: Patient is to be transferred to [facility] for higher level of care D/W * who has accepted patient for transfer Please note that this Emergency Department Report was dictated using [employer] technology software, occasionally this can lead to erroneous entry secondary to interpretation by the dictation equipment. EKG Diagnostic Results EP Interpretation: Yes Rate: Tachycardic Rhythm: Atrial flutter ST Segments: Right bundle branch block with T-wave inversion in V2 only ASA given to patient: No Rhythm Strip EP Interpretation: Yes Rate: 119 Rhythm: NSR, no PVCs, no ectopy Chest X-ray CXR: Ordered: Yes 1 view Indication: Shortness of breath EP interpretation: Yes Interpretation: Right-sided infiltrate, concern for aspiration pneumonia Impression: Right-sided pneumonia Electronically signed by Alda Richardson MD Laboratory Tests Test 03/24/17 10:55 03/24/17 11:20 White Blood Count 23.9 K/UL (4.8-10.8) *H Red Blood Count 3.70 M/UL (4.70-6.10) L Hemoglobin 10.6 G/DL (14.2-18.0) L Hematocrit 33.4 % (42.0-52.0) L Mean Corpuscular Volume 90 FL (80-99) Mean Corpuscular Hemoglobin 28.6 PG (27.0-31.0) Mean Corpuscular Hemoglobin Concent 31.7 G/DL (32.0-36.0) L Red Cell Distribution Width 14.5 % (11.6-14.8) Platelet Count 324 K/UL (150-450) Mean Platelet Volume 6.5 FL (6.5-10.1) Neutrophils (%) (Auto) % (45.0-75.0) Lymphocytes (%) (Auto) % (20.0-45.0) Monocytes (%) (Auto) % (1.0-10.0) Eosinophils (%) (Auto) % (0.0-3.0) Basophils (%) (Auto) % (0.0-2.0) Differential Total Cells Counted 100 Neutrophils % (Manual) 84 % (45-75) H Lymphocytes % (Manual) 9 % (20-45) L Monocytes % (Manual) 7 % (1-10) Eosinophils % (Manual) 0 % (0-3) Basophils % (Manual) 0 % (0-2) Band Neutrophils 0 % (0-8) Platelet Estimate Adequate Platelet Morphology Normal Hypochromasia 1+ Prothrombin Time 11.8 SEC (9.30-11.50) H Prothrombin Time INR 1.1 (0.9-1.1) PTT 25 SEC (23-33) Sodium Level 136 MMOL/L (136-145) Potassium Level 4.3 MMOL/L (3.5-5.1) Chloride Level 100 MMOL/L (98-107) Carbon Dioxide Level 31 MMOL/L (21-32) Anion Gap 5 mmol/L (5-15) Blood Urea Nitrogen 13 mg/dL (7-18) Creatinine 0.7 MG/DL (0.55-1.30) Estimate Glomerular Filtration Rate mL/min (>60) Glucose Level 168 MG/DL (74-106) H Calcium Level 8.7 MG/DL (8.5-10.1) Total Bilirubin 0.5 MG/DL (0.2-1.0) Aspartate Amino Transferase (AST) 31 U/L (15-37) Alanine Aminotransferase (ALT) 13 U/L (12-78) Alkaline Phosphatase 105 U/L (46-116) Troponin I 0.021 ng/mL (0.000-0.056) Total Protein 6.8 G/DL (6.4-8.2) Albumin 2.2 G/DL (3.4-5.0) L Globulin 4.6 g/dL Albumin/Globulin Ratio 0.5 (1.0-2.7) L Lactic Acid Level 1.90 mmol/L (0.66-2.22) (Alda Richardson M.D.) ER Course Received signout from Dr Richardson at 315pm to facilitate transfer to [facility] ENT Dr Mandel had accepted patient to Dr Richardson Transfer center's Camila called and stated ICU is saturated and couldnt take patient. They also asked the ED who also refused patient because they are also saturated. Dr Carrera is covering insurance-recommended hospitalist Dr Rust. Dr Carrera had admitted patient previously and agreed to admit patient here to ICU at 334pm. Patient was placed on fentanyl drip with trach collar inflated. Remains stable in ED. (TIFFANY MERCEDES M.D.) Last Vital Signs Date Time Temp Pulse Resp B/P (MAP) Pulse Ox O2 Delivery O2 Flow Rate FiO2 03/24/17 10:45 97.5 117 18 109/64 97 T-piece 4.0 (Alda Richardson M.D.) Status: improved (TIFFANY MERCEDES M.D.) Disposition: ADMITTED INPATIENT Condition: Critical Alda Richardson M.D. Mar 24, 2017 11:22 TIFFANY MERCEDES M.D. Mar 24, 2017 15:34
[2017-03-24 11:23] LABS: ANION GAP 5 mmol/L (5-15); CALCIUM 8.7 MG/DL (8.5-10.1); CARBON DIOXIDE 31 MMOL/L (21-32); CHLORIDE 100 MMOL/L (98-107); CREATININE 0.7 MG/DL (0.55-1.30); INR 1.1 (0.9-1.1); POTASSIUM 4.3 MMOL/L (3.5-5.1); PROTHROMBIN TIME 11.8 SEC (9.30-11.50); SODIUM 136 MMOL/L (136-145)
[2017-03-24 11:28] LABS: ALANINE AMINOTRANSFERASE 13 U/L (12-78); ALBUMIN/GLOBULIN RATIO 0.5 (1.0-2.7); ASPARTATE AMINO TRANSFERASE 31 U/L (15-37); TOTAL PROTEIN 6.8 G/DL (6.4-8.2)
[2017-03-24] MEDS ORDERED: Piperacillin/Tazobactam 3.375 GM in NS 55 ML IV ONE (11:30)
[2017-03-24] MEDS ORDERED: Vancomycin 1.5gm/D5W 250ml 250 ML IVPB ONE (11:30)
[2017-03-24] MEDS ORDERED: Zosyn 3.375gm inj ONE ×2 (11:35→11:40)
[2017-03-24 11:52] LABS: LYMPHOCYTES % (MANUAL) 9 % (20-45); NEUTROPHILS % (MANUAL) 84 % (45-75); TOTAL CELLS COUNTED 100
[2017-03-24 11:53] LABS: BAND NEUTROPHILS % (MANUAL) 0 % (0-8); BASOPHILS % (MANUAL) 0 % (0-2); EOSINOPHILS % (MANUAL) 0 % (0-3); HYPOCHROMASIA 1+; PLATELET ESTIMATE ADEQUATE; PLATELET MORPHOLOGY NORMAL
[2017-03-24] MEDS ORDERED: Morphine Sulfate 4mg/ml Inj IVP ONE (13:30)
[2017-03-24 15:41] LABS: APPEARANCE,URINE CLEAR; KETONES,URINE NEGATIVE (NEGATIVE); LEUKOCYTE ESTERASE ,URINE NEGATIVE (NEGATIVE); NITRITE,URINE NEGATIVE (NEGATIVE); PH,URINE 6 (4.5-8.0); PROTEIN,URINE NEGATIVE (NEGATIVE); UROBILINOGEN,URINE 1 MG/DL (0.0-1.0)
[2017-03-24] MEDS ORDERED: Zolpidem 5mg tab ORAL PRN (20:00)
[2017-03-24] MEDS ORDERED: Norco 5mg/325mg tab GT PRN (20:00)
[2017-03-24] MEDS: Morphine Sulfate 2mg/ml Inj IVP PRN (21:26)
[2017-03-24] MEDS: Vancomycin 1gm/D5W 275ml IVPB SCH ×2 (21:40)
[2017-03-24] MEDS: Albuterol/Ipratropium 3ml neb HHN PRN (22:27)
[2017-03-24] MEDS: LORazepam Inj 2mg/ml 1ml IV PRN (23:10)
[2017-03-24] MEDS: Piperacillin/Tazobactam 3.375 GM in D5W 55 ML IVPB SCH (23:58)
[2017-03-25] VITALS (24 sets, daily range): BP systolic 125–172; BP diastolic 68–109
--- NOTE | 2017-03-25 00:45 | Consultation ---
DATE OF CONSULTATION: 03/24/2017 CARDIOLOGY CONSULTATION CONSULTING PHYSICIAN: Samy Palm M.D. REQUESTING PHYSICIAN: Miah Carrera M.D. REASON FOR CONSULTATION: Sepsis and oropharyngeal bleeding with shock. HISTORY OF PRESENT ILLNESS: This is a 71-year-old male with a history of laryngeal carcinoma and tracheostomy. He also has a gastrostomy tube. He was noted to have bleeding from his mouth and nose and was transferred from the nursing facility for further assessment. The patient is able to follow commands, but is unable to verbalize. He apparently did complain of pain. PAST MEDICAL HISTORY: Laryngeal cancer, dysphagia with G-tube, gastroesophageal reflux disease, hypertension, and glaucoma. ALLERGIES: None. MEDICATIONS: Prior to admission, reviewed and reconciled. SOCIAL HISTORY: Not obtainable. FAMILY HISTORY: Unknown. REVIEW OF SYSTEMS: Not obtainable at this time. PHYSICAL EXAMINATION: VITAL SIGNS: The patient is on a T-piece from his trach site. Blood pressure 93/55, heart rate 120, respiratory rate 20, temperature 97.3, and saturation 98% on 4 L. GENERAL: The patient is an ill-appearing male, in mild respiratory distress. HEENT: Temporal wasting. Posterior pharynx with some dry blood noted. Trach site with no bleeding at the entry. LUNGS: With coarse breath sounds and rhonchi, right sided predominantly. CARDIAC: Regular rhythm. Rapid rate. Normal S1 and S2. ABDOMEN: Soft with G-tube. EXTREMITIES: No edema. There is no CVA tenderness. The patient moves all extremities and responds to commands. LABORATORY AND DIAGNOSTIC DATA: EKG with atrial flutter with rapid rates and right bundle-branch block conduction. Chest x-ray with right-sided infiltrate. White count 23.9 and hemoglobin 10.6. Sodium 136, chloride 100, bicarbonate 31, potassium 4.3, BUN 13, and creatinine 0.7. Albumin 2.2. Lactic acid 1.9. IMPRESSION: 1. Head and neck cancer. 2. Acute bleeding. 3. Sepsis. 4. Pneumonia. 5. Paroxysmal atrial flutter. 6. Shock due to sepsis and acute blood loss. PLAN: 1. Intensive care unit monitoring. 2. Antimicrobials. 3. Serial hemoglobin. 4. No antiplatelets or anticoagulants. 5. Volume support. 6. Serial troponin levels. 7. Consider digitalis if inadequate response with regard to rate control following hydration. Samy Palm M.D. DR: JUSTICE JOB#: [id number] CC:
[2017-03-25] MEDS: Morphine Sulfate 2mg/ml Inj IVP PRN ×2 (02:04→21:37)
[2017-03-25] MEDS: LORazepam Inj 2mg/ml 1ml IV PRN (03:11)
[2017-03-25] MEDS: Albuterol/Ipratropium 3ml neb HHN PRN ×3 (03:26→15:46)
[2017-03-25 05:35] LABS: MEAN CORPUSCULAR HGB CONC 32.3 G/DL (32.0-36.0); MEAN CORPUSCULAR VOLUME 90 FL (80-99); MEAN PLATELET VOLUME 6.1 FL (6.5-10.1); PLATELET COUNT 280 K/UL (150-450); RED BLOOD COUNT 3.77 M/UL (4.70-6.10); RED CELL DISTRIBUTION WIDTH 14.3 % (11.6-14.8)
[2017-03-25 05:48] LABS: ALANINE AMINOTRANSFERASE 10 U/L (12-78); ALBUMIN/GLOBULIN RATIO 0.5 (1.0-2.7); ANION GAP 7 mmol/L (5-15); ASPARTATE AMINO TRANSFERASE 20 U/L (15-37); CALCIUM 8.3 MG/DL (8.5-10.1); CARBON DIOXIDE 28 MMOL/L (21-32); CHLORIDE 104 MMOL/L (98-107); CREATININE 0.6 MG/DL (0.55-1.30); SODIUM 139 MMOL/L (136-145); TOTAL PROTEIN 6.3 G/DL (6.4-8.2)
[2017-03-25 05:58] LABS: WHITE BLOOD COUNT 25.2 K/UL (4.8-10.8)
[2017-03-25 08:11] LABS: BAND NEUTROPHILS % (MANUAL) 0 % (0-8); BASOPHILS % (MANUAL) 0 % (0-2); EOSINOPHILS % (MANUAL) 0 % (0-3); LYMPHOCYTES % (MANUAL) 3 % (20-45); NEUTROPHILS % (MANUAL) 89 % (45-75); PLATELET ESTIMATE ADEQUATE; TOTAL CELLS COUNTED 100
[2017-03-25 08:12] LABS: HYPOCHROMASIA 1+; PLATELET MORPHOLOGY NORMAL
--- NOTE | 2017-03-25 08:28 | Diagnostic Imaging Report ---
Indication: Chest pain Technique: One view of the chest Comparison: 03/01/2017 Findings: Interim development of a large right-sided pleural effusion. There may be underlying parenchymal disease as well. There is a tracheostomy. There is central bronchial wall thickening Left lung and pleural space are clear otherwise Impression: Large right pleural effusion, underlying parenchymal disease as well new since 03/01/2017
[2017-03-25] MEDS: Piperacillin/Tazobactam 3.375 GM in D5W 55 ML IVPB SCH ×3 (08:37→23:37)
[2017-03-25] MEDS: Ferrous Sulfate 300 MG/5 ML UDC NG SCH ×3 (08:38→17:14)
[2017-03-25] MEDS: Ascorbic Acid 500mg tab GT SCH ×2 (08:38→17:14)
[2017-03-25] MEDS ORDERED: Docusate 100mg cap ORAL SCH (09:00)
[2017-03-25] MEDS: Vancomycin 1gm/D5W 275ml IVPB SCH ×2 (09:56)
[2017-03-25] MEDS ORDERED: Tubing IV Secondary IV ONE (16:00)
[2017-03-25] MEDS ORDERED: NS 275ml ONE (16:00)
--- NOTE | 2017-03-25 17:15 | History and Physical Report ---
DATE OF ADMISSION: 03/24/2017 CHIEF COMPLAINT: Hemoptysis and sepsis. HISTORY OF PRESENT ILLNESS: The patient is an unfortunate 71-year-old male. He has a history of head and neck mass and a tracheostomy, PE, discharged from a long-term facility with complaints of hemoptysis. The patient was previously admitted in late February with similar symptoms. According to family members, he has yet to see an ENT, but has continued to have intermittent episodes of hemoptysis. On evaluation in the emergency room, the patient was noted to have an elevated white count. According to family members, he has been more confused. He is now admitted for further evaluation and care. He has been pancultured. PAST MEDICAL HISTORY: As above. History of PE. PAST SURGICAL HISTORY: Includes a trach and a G-tube. CURRENT MEDICATIONS: Reconciled and reviewed. ALLERGIES: None. FAMILY HISTORY: None. SOCIAL HISTORY: Significant for prior history of smoking. No alcohol. No drugs. REVIEW OF SYSTEMS: Unobtainable as the patient is confused. PHYSICAL EXAMINATION: VITAL SIGNS: Temperature 98 degrees, pulse 78, respirations 18, and blood pressure 102/70. The patient is saturating 99% on 8 liters via T-piece. GENERAL: The patient is awake and alert, but is confused. NECK: Supple. Trachea site was midline. There is some blood noted from the trachea. HEART: Regular rate and rhythm. LUNGS: Significant for scattered rhonchi. ABDOMEN: Soft, nontender, and nondistended. G-tube site is clean. EXTREMITIES: Without clubbing, cyanosis, or edema. LABORATORY DATA: White count was 24,000, hemoglobin 10, hematocrit 33, and platelets 324,000. CMP showed a sodium 136, potassium 4.3, and creatinine 0.7. Troponin 0.021. ASSESSMENT: This is an unfortunate male with history of head and neck cancer, tracheostomy, history of pulmonary embolism, admitted with hemoptysis, unclear etiology. 1. Hemoptysis. 2. History of head and neck cancer. 3. Possible sepsis and pneumonia. PLAN: Continue respiratory care, broad-spectrum IV antibiotics. Follow up cultures. Transfer to [facility] for higher level of care. Continue G-tube feeds. Plan of care was discussed with the patient's family at the bedside. Miah Carrera M.D. DR: MAURICIO JOB#: [id number] CC: TATIANA
[2017-03-25] MEDS ORDERED: Docusate 100mg/10ml Liq NG SCH (18:00)
--- NOTE | 2017-03-25 19:00 | Consultation ---
DATE OF CONSULTATION: 03/25/2017 HEAD AND NECK SURGERY/ENT CONSULTATION CONSULTING PHYSICIAN: Candelario Engle M.D. REQUESTING PHYSICIAN: Miah Carrera M.D. REASON FOR CONSULTATION: The patient is a 71-year-old male who has bleeding when he coughs. He has a trach in place. He in January 2017 had that trach put in at [place]. He then was unable to procure followup with the physician who did the procedure. [facility] has [facility] He is supposed to have a PET scan, but it has not been scheduled. Of important note, he had some sort of cancer 10 years ago that radiated in his head and neck region according to his daughter who was present during my evaluation with the patient, which was about 40 minutes. She related the history to me and recently started having problems. They are not sure on biopsy if this is a sarcoma or a metastatic squamous cell carcinoma. He is also on a waiting list to go to [facility] as a transfer from [place]. They do not have a bed at this time. PROBLEM LIST: His past medical history from what I can ascertain from the chart and the daughter is recent trach, old sort of head and neck cancer, which has recurred in some form, sepsis, bleeding from his trach, although his hematocrit is stable, his hemoglobins is in 10s. His INR is 1.1. Platelets are adequate. MEDICATIONS: Ambien, vancomycin, morphine, [place], Colace, DuoNeb, and fentanyl. PHYSICAL EXAMINATION: He is 187.96 cm, 86.664 kg, and BMI 24.5. He is tied into the bed with gentle restraints. The trach has no blood on it at the moment, although the suction shows a trach. He has a mass inside his mouth on bimanual palpation on the left side going into his neck. Ears, positive light reflex, normal canal. Nose normal. ASSESSMENT: 1. He has some sort of tumor in his neck, which may well be impinging on vasculature in his head and neck area causing the bleeding. 2. He has an intensive care unit psychosis. He has been acting strange the last week or two according to his daughter who also spoke with her sister, who was with him earlier at [facility]. He also may have metastases in his brain. PLAN: I would suggest that rather than try to control him at [place], which is not set for a large head and neck bleed due to a cancer that the patient be transferred [facility] to [facility] where he is on a waiting list. I am also willing to contact [facility], Dr. Laron Balderas, to see if they can accept him. Thank you very much for asking my opinion in the care and treatment of this patient. Candelario Engle M.D. DR: MENA JOB#: [id number] CC:
[2017-03-25] MEDS ORDERED: Vancomycin 1.5gm/D5W 250ml 250 ML IVPB SCH (22:00)
[2017-03-26] VITALS (7 sets, daily range): BP systolic 132–141; BP diastolic 82–111
[2017-03-26] MEDS: LORazepam Inj 2mg/ml 1ml IV PRN (01:40)
--- NOTE | 2017-03-26 01:45 | Progress Note ---
DATE: 03/25/2017 CARDIOLOGY PROGRESS NOTE SUBJECTIVE: The patient remains in the intensive care unit. He is on a T-tube. He still has some bleeding from his oropharynx. He was seen by ENT who is concerned over a tumor in the neck impinging on vasculature and causing this bleeding. Recommendations for transfer to higher level of care were made and in progress. OBJECTIVE: VITAL SIGNS: Blood pressure 143/94, pulse 103, respiratory rate 22, and temperature 99. NECK: Trach presently with minimal light thin secretions. LUNGS: Few rhonchi. CARDIAC: Regular rhythm. Rapid rate. Normal S1, S2. ABDOMEN: Soft. EXTREMITIES: No edema. LABORATORY DATA: White count 25 and hemoglobin 10.9. BUN 9 and creatinine 0.6. Albumin 2. Troponin negative. IMPRESSION: 1. Head and neck tumor with bleeding. 2. Tracheostomy. 3. Severe protein-calorie malnutrition. 4. Secondary sinus tachycardia. PLAN: 1. Respiratory hygiene. 2. Continue T-tube collar. 3. Monitor for signs of respiratory distress that would warrant mechanical ventilation. 4. Await transfer to higher level of care. 5. Serial hemoglobin. 6. DVT prophylaxis with SCDs. 7. Maintenance hydration. Samy Palm M.D. DR: JUSTICE JOB#: [id number] CC:
[2017-03-26] MEDS: Morphine Sulfate 2mg/ml Inj IVP PRN (03:11)
[2017-03-26 04:25] LABS: MEAN CORPUSCULAR HEMOGLOBIN 29.1 PG (27.0-31.0); MEAN CORPUSCULAR HGB CONC 32.4 G/DL (32.0-36.0); MEAN CORPUSCULAR VOLUME 90 FL (80-99); MEAN PLATELET VOLUME 6.1 FL (6.5-10.1); PLATELET COUNT 329 K/UL (150-450); RED BLOOD COUNT 3.91 M/UL (4.70-6.10); RED CELL DISTRIBUTION WIDTH 14.4 % (11.6-14.8)
[2017-03-26 04:34] LABS: WHITE BLOOD COUNT 25.7 K/UL (4.8-10.8)
[2017-03-26 04:50] LABS: ALANINE AMINOTRANSFERASE 15 U/L (12-78); ALBUMIN/GLOBULIN RATIO 0.5 (1.0-2.7); ANION GAP 10 mmol/L (5-15); ASPARTATE AMINO TRANSFERASE 23 U/L (15-37); CALCIUM 8.4 MG/DL (8.5-10.1); CARBON DIOXIDE 27 MMOL/L (21-32); CHLORIDE 102 MMOL/L (98-107); CREATININE 0.7 MG/DL (0.55-1.30); POTASSIUM 3.5 MMOL/L (3.5-5.1); SODIUM 139 MMOL/L (136-145); TOTAL PROTEIN 6.5 G/DL (6.4-8.2)
[2017-03-26] MEDS ORDERED: dilTIAZem HCl 25mg/5ml Inj IVP ONE (05:00)
[2017-03-26 10:14] LABS: BAND NEUTROPHILS % (MANUAL) 0 % (0-8); BASOPHILS % (MANUAL) 0 % (0-2); EOSINOPHILS % (MANUAL) 0 % (0-3); LYMPHOCYTES % (MANUAL) 4 % (20-45); NEUTROPHILS % (MANUAL) 85 % (45-75); PLATELET ESTIMATE ADEQUATE; PLATELET MORPHOLOGY NORMAL; TOTAL CELLS COUNTED 100
[2017-03-26 10:15] LABS: HYPOCHROMASIA 1+
--- NOTE | 2017-03-27 18:07 | Discharge Summary ---
Discharge Summary Hospital Course Date of Admission Mar 24, 2017 at 11:35 Date of Discharge Mar 26, 2017 at 06:44 Admitting Diagnosis throat CA HPI Vini Price is a 71 year old male who was admitted on Mar 24, 2017 at 11:35 for Throat Cancer Procedures [id number] Discharge Discharge Disposition Patient was discharged to [facility] Discharge Diagnoses: Vijaya Ortiz NP Mar 27, 2017 18:07
--- NOTE | 2017-03-28 04:45 | Discharge Summary 2 SIG ---
DATE OF ADMISSION: 03/24/2017 DATE OF DISCHARGE: 03/26/2017 CONSULTANTS: 1. Miah Carrera M.D. 2. Samy Palm M.D. 3. Candelario Engle M.D. BRIEF HOSPITAL COURSE: The patient is an unfortunate 71-year-old male, who has a history of head and neck cancer, who has a tracheostomy, history of pulmonary emboli, was transferred from [facility] facility for complaints of hemoptysis. The patient was previously admitted in late February due to similar symptoms and according to family members, he was not yet seen by ENT. He continued to have intermittent episodes of hemoptysis. On evaluation at ED, the patient was noted to have a significantly elevated WBC count and was noted to have been more confused. Workup showed WBC 23.9, hemoglobin of 10, and hematocrit 33. Chest x-ray done showed large right pleural effusion with underlying parenchymal disease. He was admitted to intensive care unit. He was placed on NPO and was started on IV vancomycin and Zosyn. He was given SCDs for DVT prophylaxis. ENT evaluation was done, assessed there might be a tumor in the neck, which is impinging on the vasculature causing the bleeding. [facility] is not set for large head and neck bleed and recommended transfer to higher level of care. He was eventually transferred to a contracted hospital. FINAL DIAGNOSES: 1. Sepsis. 2. Head and neck tumor with bleeding. 3. Tracheostomy. 4. Severe protein-calorie malnutrition. 5. Secondary sinus tachycardia. 6. Hemoptysis. 7. History of head and neck CA. DISPOSITION: The patient was transferred to [facility]. Emanuel Rust M.D. I have been assigned to dictate discharge summary on this account and I was not involved in the patient's management. Vijaya Ortiz N.P. DR: HERSON JOB#: [id number] CC: TATIANA
--- NOTE | 2017-03-28 23:09 | Diagnostic Imaging Report ---
APPROVED REPORT CPT Code: 59089 Present Symptoms Comments: R/O DVT Past History Pulmonary Embolism Risk Factors Bed Rest BILATERAL: Imaging reveals a patent deep venous system bilaterally. There is no evidence of thrombus within the femoral, popliteal or tibial segments. The greater saphenous veins are also within normal limits. Doppler indicates normal spontaneous flow within these segments.
== END 2017-03-26 06:44 | disposition short-term general hospital (02) | DRG 871 ==
LOC: EDBD 10:52 → EMR 11:33 → ICU 11:35 → EDBEDREQSVC 15:23 → EDBEDREQ 15:47
PROC: 30233N1 Transfusion of Nonautologous Red Blood Cells into Peripheral Vein, Percutaneous Approach (ICD-10-PCS; principal; 2017-03-24)
DX: A41.9 Sepsis, unspecified organism (principal); J18.9 Pneumonia, unspecified organism; R65.21 Severe sepsis with septic shock; E43 Unspecified severe protein-calorie malnutrition; Z93.0 Tracheostomy status; R04.2 Hemoptysis; C32.9 Malignant neoplasm of larynx, unspecified; R13.10 Dysphagia, unspecified; R00.0 Tachycardia, unspecified; Z93.1 Gastrostomy status; H40.9 Unspecified glaucoma; K21.9 Gastro-esophageal reflux disease without esophagitis; I10 Essential (primary) hypertension; Z86.711 Personal history of pulmonary embolism; Z78.1 Physical restraint status; Z68.24 Body mass index [BMI] 24.0-24.9, adult
CPT/HCPCS: 36415; 71010; 80053; 80202; 81003; 83605; 84484; 85007; 85025; 85610; 85730; 86850; 86900; 86901; 86920; 87040; 93005; 93970; 94640; 94664; 94760; 99284; 99285; J7620